=== PATIENT | female | born 1975 | race Caucasian/White ===

== ENCOUNTER 2018-09-12 12:36 | Outpatient (CLI) ==
[2015-11-18 11:43] VITALS: BMI 22.6
== END 2018-09-12 12:37 | disposition home or self-care (01) ==
LOC: LAB 12:36
PROVIDERS: ATTEND Internal Medicine
DX: R05 Cough (principal)
CPT/HCPCS: 87070; 87186

== ENCOUNTER 2018-09-16 13:30 | Outpatient (CLI) ==
[2015-11-18 11:43] VITALS: BMI 22.6
--- NOTE | 2018-09-16 14:02 | DI ---
EXAM: Two views of the chest. History: Cough. Comparison: Chest radiograph 04/13/2014 Findings: Heart size is normal. Patchy bilateral lung infiltrates and bilateral micronodules with p ossible bronchiectasis. No appreciable pleural fluid and no pneumothorax. No acute osseous abnormal ities. Catheter tubing is seen bilaterally. Impression: Bilateral pneumonia and bilateral micronodules with possible bronchiectasis. Recommend further evaluation with chest CT.
== END 2018-09-16 13:31 | disposition home or self-care (01) ==
LOC: RAD 13:30
PROVIDERS: ATTEND Internal Medicine
DX: R05 Cough (principal)